=== PATIENT | female | born 1955 | race American Indian/Alaskan Native ===

== ENCOUNTER 2019-11-05 10:26 | Inpatient (IN) | payer BC, OTHER ==
[~2019-11-05] VITALS: Ht 160 cm; Wt 120.7 kg
[~2019-11-05 10:26] MED LIST: GABAPENTIN300 MG PO
--- NOTE | 2019-11-06 17:03 | NUR ---
PATIENT HERE FOR PREADMIT APPOITMENT. SHE IS SCHEDULED ON 11/19/2019 FOR A RIGHT TOTAL HIP ARTHROPLASTY. SHE WAS TIGHT ON TIME DURING THIS PREADMIT AND NEEDED TO GET TO A FAMILY GATHERING. SHE STATES SHE HAS ONE STEP INTO THE HOME AND NO STEPS INSIDE THE HOME. THERE IS A WALK IN SHOWER. SHE HAS A FRONT WHEELED WALKER AND WILL GO TO [facility] TO OBTAIN A SHOWER BENCH AND SOMETHING FOR THE TOILET TO ELEVATE HER ABOVE THE LEVEL OF THE KNEE. SHE WOULD LIKE PHYSICAL THERAPY AT [facility] PHYSICAL THERAPY AFTER SURGERY. SHE HAS NOT HAD A PREOP PHYSICAL THERAPY APPOINTMENT. HER ABBIE WILL BE HERE TO TRANSPORT HER HOME WHEN DISCHARGED. PATIENT STATES ALL HER LABS/EKG/CXR HAS BEEN DONE AT [facility]. THIS RN WILL CONTACT [facility] FOR THE TEST THAT HAVE BEEN COMPLETED AND AN H&P. THIS INFORMATION WILL BE SENT TO DR DARBY OFFICE AND CASE MANAGEMENT FOR FUTHER FOLLOW UP.
[2019-11-18] MEDS ORDERED: OXYBUTYNIN CHLO10 MG PO (14:26)
[2019-11-18] MEDS ORDERED: CYMBALTA60 MG PO (14:26)
[2019-11-18] MEDS ORDERED: CELEBREX200 MG PO (14:27)
[2019-11-18] MEDS ORDERED: TOPAMAX25 MG PO (14:27)
[2019-11-18] MEDS ORDERED: LYRICA75 MG PO (14:28)
[2019-11-18] MEDS ORDERED: FOLIC ACID1 MG PO (14:28)
--- NOTE | 2019-11-19 06:34 | NUR ---
CHG NASAL SWAB AND ORAL RINSE COMPLETE.
--- NOTE | 2019-11-19 08:05 | NUR ---
PT IS ALERT, ORIENTED AND SUPPORTED BY HER ULISES. PT SEEMS INFORMED, FAIRLY COMFORTABLE AND ABLE TO LAUGH AND JOKE. PT REQUESTED PRAYER AND WE FINISHED KIM CORDOVA CAME TO GET PT READY. WILL FOLLOW NEEDED
--- NOTE | 2019-11-19 09:48 | NUR ---
11/19/19 0948 Linda Mccoy 0938 PT ARRIVED IN PACU WIDE AWAKE WITH NO C/O'S. 0948 RESTING. REU.
--- NOTE | 2019-11-19 10:30 | NUR ---
PT RETURNED TO ROOM FOLOWING R HIP REPLACEMENT, WAKENS EASILY TO HER NAME, ORIENTED, DENIES ANY PAIN, CMS INTACT TO R FOOT/TOES, ABDUCTOR WEDGE IN PLACE, ICE TO INCISION R HIP, DRSG IS CDI. ORIENTED TO CALL LIGHT, ORDERS NOTED AND FAXED TO PHARMACY. CONT. PULSE OXIMETER IN PLACE, IVF PATENT, DENIES NEED TO VOID.
--- NOTE | 2019-11-19 11:43 | NUR ---
AWAKE SITTING UP IN BED, ORDERED BREAKFAST, IN ROOM, USING INCENTIVE SPIROMETER. CALL LIGHT IN EASY REACH, AGAIN DENIES NEED TO VOID. DRSG REMAINS CDI, ICE TO HIP.
--- NOTE | 2019-11-19 13:10 | NUR ---
PT IS ALERT, CONT. TO DENY ANY DISCOMFORT, GOOD CMS TO R FOOT, DRSG REMAINS CDI WITH ICE TO INCISION. SITTING UP EATING LUNCH, NO NAUSEA, VISITING WITH FATHER ALVARO.
--- NOTE | 2019-11-19 15:16 | NUR ---
2 PERSON ASSIST TO STAND AND PIVOT ONTO BSC, VOIDED 200ML YELLOW URINE, PT CONT. TO DENY ANY PAIN, HAS GOOD CMS TO FEET, ABLE TO BEAR FULL WT USING FWW, IVF PATENT, DENIES ANY NAUSEA, BACK TO BED WITH ICE TO INCISION, DRSG WITH SCANT AMOUNT DRAINAGE NOTED. WEDGE IN PLACE WITH HEEL PROTECTORA AND SCD'D. CALL LIGHT IN EASY REACH.
--- NOTE | 2019-11-19 15:46 | NUR ---
PT IS AMBULATING IN HALLWAY WITH PHYSICAL THERAPY AT THIS TIME.
--- NOTE | 2019-11-19 17:20 | NUR ---
PT IS IN BED, WITH ICE TO INCISION, DINNER JUST ARRIVED, PT STATES SHE IS HUNGRY, CONT. TO DENY ANY PAIN, REPORTS INCREASED FEELING IN HIP WITH AMBULATION WHEN WORKING WITH PT, PT IN GOOD SPIRITS, DENIES ANY NEEDS, SCHEDULED TORADOL GIVEN. CALL LIGHT IN EASY REACH.
--- NOTE | 2019-11-19 19:15 | NUR ---
REPORT RECEIVED FROM DAY SHIFT RN. PT LYING IN BED, ALERT AND ORIENTED HAVING A SNACK. SCD'S/BOLSTER/HP IN PLACE. ICE TO RIGHT HIP INCISION. DRESSING INTACT WITH SMALL AMOUNT OF DRAINAGE. DENIES NEEDS AT THIS TIME. WHITE BOARD UPDATED. CALL LIGHT IN REACH.
--- NOTE | 2019-11-19 20:37 | NUR ---
ROUNDED CHARGE. PATIENT IS RESTING IN BED. JULI RN IS IN ROOM. PATIENT IS FEELING NAUSOUS. JULI RN PROVIDED WITH ZOFRAN PER ORDER FOR PATIENT. NO FURTHER NEEDS NOTED. CALL LIGHT IN REACH.
--- NOTE | 2019-11-19 20:40 | NUR ---
PT MEDICATED WITH PRN FOR NAUSEA. SCHEDULED PO MEDS HELD AT THIS TIME. COOL WASHCLOTH PROVIDED.
--- NOTE | 2019-11-19 21:20 | NUR ---
EVENING ASSESSMENT COMPLETE. PT DENIES NAUSEA, PO MEDS GIVEN WITHOUT ISSUE. PT UP TO BSC WITH 2PA AND FWW. GAIT STEADY. BACK TO BED, YAMILE WELL. SCD'S/TEDS/HP/BOLSTER IN PLACE. DRESSING ON RIGHT HIP CDI WITH SCANT AMOUNT OF SANGUINEOUS DRAINAGE. FRESH ICE TO INCISION. CPOX IN PLACE. PT DENIES PAIN AT THIS TIME. CALL LIGHT IN REACH.
--- NOTE | 2019-11-19 23:10 | NUR ---
PT RESTING COMFORTABLY. CPOX IN PLACE. IV ABX INFUSING.
--- NOTE | 2019-11-20 01:49 | NUR ---
PT RESTING IN BED WITH EYES CLOSED, NAD. CPOX IN PLACE. SpO2 95% ON RA, HEART RATE 60.
--- NOTE | 2019-11-20 03:18 | NUR ---
PT RESTING WELL. SCHEDULED MEDS GIVEN. DENIES PAIN OR NAUSEA. FRESH ICE TO INCISION.
--- NOTE | 2019-11-20 08:06 | NUR ---
BEDSIDE REPORT RECEIVED FROM JULI ESCOBEDO. WHITE BOARD UPDATED. PATIENT DROWSY BUT AWAKE LYING IN BED. VS TAKEN BY STUDENT NURSE. NO NEEDS AT THIS TIME.
--- NOTE | 2019-11-20 08:25 | NUR ---
CALL LIGHT ANSWERED. PATIENT RESTING IN BED. IN ROOM. PATIENT GOES TO USE THE BASE COMMODE. PATIENT USES WALKER. ONE PERSON ASSISTING. PATIENT BACKS TO BED. CALL LIGHT WITHIN REACH. NO OTHER NEEDS AT THIS TIME
--- NOTE | 2019-11-20 09:07 | OR ---
[facility] [address], [place] [address] Signed DATE OF OPERATION: 11/19/2019 SURGEON: Aden Gutierrez MD PREOPERATIVE DIAGNOSIS: End-stage osteoarthritis, right hip. POSTOPERATIVE DIAGNOSIS: End-stage osteoarthritis, right hip. PROCEDURE: Right total hip arthroplasty. ANESTHESIA: spinal with sedation. IMPLANTS: High offset size 7 [place] stem and a 54 mm sector hole pinnacle cup with a neutral 36 liner. SPECIMENS AND COMPLICATIONS: There were no specimens or complications. BLOOD LOSS: Probably about 600 mL. WHAT WAS DONE: The patient was taken to the operating room. After anesthesia was induced and the airway secured, the patient was placed in the left lateral decubitus position and prepped and draped in a routine sterile fashion. The bony topography was outlined with a skin marking pen. A slightly curvilinear and anterolateral incision was made centered over the tip of the greater trochanter. Skin was divided sharply. Subcutaneous tissue was bluntly spread and hemostasis was achieved with electrocautery. Deep fascia was incised in line with the skin incision and then a self-retaining retractor was placed. We then released the anterior third of the gluteus off the greater trochanter and retracted it medially. We then did an anterior and superior capsulectomy. We were then able to dislocate the hip. The femoral neck resection was accomplished at the base of the greater trochanter using the alignment guide. We then removed the head and neck fragment. The wound was gently irrigated and a self retaining retractor was placed. We then exposed the acetabulum circumferentially and proceeded with standard hemispherical Electronically Signed By: ADEN GUTIERREZ MD 11/20/19 0907 PATIENT NAME: ARTURO DOSHI OPERATIVE REPORT DATE OF : 55 REPORT #: [id number] PHYSICIAN: ADEN GUTIERREZ MD PCP: JOSUE WAGONER REPORT IS CONFIDENTIAL AND NOT TO BE RELEASED WITHOUT AUTHORIZATION [facility] [address], [place] [address] Signed reaming. We had this snugly fit with a 53 mm reamer. We impacted a 53 mm trial. The trial seemed to sit quite nicely with good alignment and position. So, we impacted a 54 mm cup and secured it with two additional screws. A neutral liner was then impacted. The wound was gently irrigated and the proximal femur was rotated up into the wound. We then prepared the proximal femur for standard reamers and broaches and had quite snug fit with a size 7 broach. We then reduced the hip and we were happiest with the +1.5 high offset combination. We then removed all the trials after taking an x-ray that showed good alignment and good position. We then impacted the size 7 high offset stem and put a +5 head on, which seemed to give us a little bit better length and a little bit better stability. At this point, there was an excellent range of motion of the hip. The calcar looked unremarkable. The wound was gently irrigated and closed in a standard fashion. Sterile dressings were applied and the patient was awakened and taken to the recovery room where she arrived in stable condition. Counts were correct and antibiotic protocols were followed. Aden Gutierrez MD WFB/MODL /[id number] Copies: ~ Electronically Signed By: ADEN GUTIERREZ MD 11/20/19 0907 PATIENT NAME: TICOARTURO OPERATIVE REPORT DATE OF : 55 REPORT #: [id number] PHYSICIAN: ADEN GUTIERREZ MD PCP: JOSUE WAGONER REPORT IS CONFIDENTIAL AND NOT TO BE RELEASED WITHOUT AUTHORIZATION
--- NOTE | 2019-11-20 10:31 | NUR ---
AMBULATING IN HALLWAY WITH DEQUAN PHYSICAL THERAPIST.
[2019-11-20] MEDS ORDERED: VITAMIN D3125 MC1 PO (12:15)
[2019-11-20] MEDS ORDERED: POTASSIUM CITR10 MEQ PO (12:18)
[2019-11-20] MEDS ORDERED: APPLE CIDER VI500 MG PO (12:19)
[2019-11-20] MEDS ORDERED: TURMERIC500 M2 PO (12:21)
[2019-11-20] MEDS ORDERED: METAMUCIL0.4 GM PO (12:23)
[2019-11-20] MEDS ORDERED: MAGNESIUM400 MG PO (12:28)
--- NOTE | 2019-11-20 13:13 | NUR ---
Medications reconciled using pharmacy records and patient interview
--- NOTE | 2019-11-20 13:18 | NUR ---
PT ALERT, ORIENTED AND HAS PAIN AT 3-4. SHE ANTICIPATES DC LATER TODAY AFTER PM P.T.HAD GOOD VISIT WITH PT, EXPRESSES SATISFACTION WITH CARE. PT REQUESTED PRAYER, WILL FOLLOW NEEDED
--- NOTE | 2019-11-20 13:56 | NUR ---
PATIENT SITTING UP IN BED. PHYSICAL THERAPIST AND STUDENT RN IN ROOM. THE FOLLOWING VITAL SIGNS DONE BY STUDENT RN. I&O DONE. CALL LIGHT WITHIN REACH. NO OTHER NEEDS AT THIS TIME
--- NOTE | 2019-11-20 14:22 | NUR ---
JUST FINISHED WORKING WITH DEQUAN, PHYSICAL THERAPIST. DR GUTIERREZ IN TO SEE PATIENT NOW. WILL DISCHARGE THIS EVENING.
[2019-11-20] MEDS ORDERED: DILAUDID4 MG PO (14:39)
[2019-11-20] MEDS ORDERED: OXYCODONE HCL10 MG PO (14:41)
[2019-11-20] MEDS ORDERED: TYLENOL325 MG PO (14:45)
[2019-11-20] MEDS ORDERED: ZOFRAN4 MG PO (14:46)
[2019-11-20] MEDS ORDERED: ASPIRIN325 MG PO (14:48)
== END 2019-11-20 16:30 | disposition home or self-care (01) | DRG 470 ==
LOC: DSVR 11-19 05:45 → MS 11-19 05:45
PROVIDERS: ADMIT Orthopaedic Surgery
PROC: 0SR90JZ Replacement of Right Hip Joint with Synthetic Substitute, Open Approach (ICD-10-PCS; principal; 2019-11-19 06:45)
DX: M16.11 Unilateral primary osteoarthritis, right hip (principal); Z68.42 Body mass index [BMI] 45.0-49.9, adult; M79.7 Fibromyalgia; M48.062 Spinal stenosis, lumbar region with neurogenic claudication; M51.16 Intervertebral disc disorders with radiculopathy, lumbar region; M54.32 Sciatica, left side; M54.31 Sciatica, right side; E66.9 Obesity, unspecified; G47.30 Sleep apnea, unspecified; Z79.899 Other long term (current) drug therapy; Z79.1 Long term (current) use of non-steroidal anti-inflammatories (NSAID)
CPT/HCPCS: 01214; 36415; 72170; 73501; 80053; 85025; 94762; 97110; 97116; 97162; C1776; J0690; J1885; J2001; J2250; J2274; J2405; J2704; J7121

== ENCOUNTER 2019-12-17 09:02 | Day surgery (SDC) | payer BC, OTHER ==
[~2019-12-17] VITALS: Ht 160 cm; Wt 120.7 kg
--- NOTE | ~2019-12-17 | OR ---
[facility] [address], [place] [address] Draft DATE OF OPERATION: 12/17/2019 SURGEON: Aden Gutierrez MD PREOPERATIVE DIAGNOSIS: Postoperative hematoma, right total hip wound. POSTOPERATIVE DIAGNOSIS: Postoperative hematoma, right total hip wound. PROCEDURE PERFORMED: Incision and drainage. ANESTHESIA: General. We did send some cultures and there was no purulence and nothing to suggest any infection. WHAT WAS DONE: The patient was taken to the operating room. After anesthesia was induced, she was placed in the left lateral decubitus position and prepped and draped in a routine sterile fashion. We opened the central third of her incision and evacuated probably about 400 mL of liquid hematoma. There was also some clotted material. This was then copiously irrigated with 6 L of jet lavage followed by a liter of Betadine solution followed by . At this point, we appeared to have a completely clean wound. There was nothing to suggest violation of the deep fascia. We did excise some of the necrotic fat and sent it off for cultures. We then freshened up the edges of the incision and closed it approximating and closing the space with interrupted vertical mattress nylon sutures and then we secured the skin with kaya. Two medium Hemovacs were left in the depth of the wound. We then attached the Hemovac to drainage and really nothing additional came out. A sterile dressing was applied. The patient was awakened and taken to the recovery room where she arrived in stable condition. Counts were correct and antibiotic protocols were followed. Aden Gutierrez MD PATIENT NAME: ARTURO DOSHI OPERATIVE REPORT DATE OF : 55 REPORT #: [id number] PHYSICIAN: ADEN GUTIERREZ MD PCP: JOSUE WAGONER REPORT IS CONFIDENTIAL AND NOT TO BE RELEASED WITHOUT AUTHORIZATION [facility] [address], [place] [address] Draft [facility] /[id number] Copies: ~ PATIENT NAME: ARTURO DOSHI OPERATIVE REPORT DATE OF : 55 REPORT #: [id number] PHYSICIAN: ADEN GUTIERREZ MD PCP: JOSUE WAGONER REPORT IS CONFIDENTIAL AND NOT TO BE RELEASED WITHOUT AUTHORIZATION
[~2019-12-17 09:02] MED LIST changes: +APPLE CIDER VI500 MG PO; +ASPIRIN325 MG PO; +CELEBREX200 MG PO; +CYMBALTA60 MG PO; +DILAUDID4 MG PO; +FOLIC ACID1 MG PO; +LYRICA75 MG PO; +MAGNESIUM400 MG PO; +METAMUCIL0.4 GM PO; +OXYBUTYNIN CHLO10 MG PO; +OXYCODONE HCL10 MG PO; +POTASSIUM CITR10 MEQ PO; +TOPAMAX25 MG PO; +TURMERIC500 M2 PO; +TYLENOL325 MG PO; +VITAMIN D3125 MC1 PO; +ZOFRAN4 MG PO
--- NOTE | 2019-12-17 10:10 | NUR ---
PT'S BP LOW. RECHECKED ON OTHER ARM AND WITH RADIAL CUFF. BP STILL LOW ACCORDING TO PT'S REPORT OF NORMAL BPS. CHARGE NURSE NOTIFIED. FLUIDS SARTED VIA IV IN RIGHT WRIST
--- NOTE | 2019-12-17 12:07 | NUR ---
12/17/19 1206 Sheets,Zuly 1159 PT ARRIVED TO PACU RESP EVEN AND UNLABORED. 10L VIA MASK IN PLACE. PT ASLEEP.
--- NOTE | 2019-12-17 12:52 | NUR ---
GEOVANNA 1225- PT RETURNS TO ROOM 3 FROM PACU. VSS. PT REPORTS 2/10 PAIN IN RIGHT HIP. HEMOVAC DRAIN IN PLACE. SMALL AMOUNT OF DRAINAGE ON DRESSING. ORDER FOR LUNCH PLACED FOR PT. WATER PROVIDED. CALL LIGHT WITHIN REACH
[2019-12-17] MEDS ORDERED: NORCO 10-325 T1 EACH PO (13:11)
[2019-12-17] MEDS ORDERED: BACTRIM DS TAB1 EACH PO (13:11)
== END 2019-12-17 14:00 | disposition home or self-care (01) ==
LOC: DS 09:02 → OPS 09:02 → DS 09:15 → OPS 10:15 → DS 17:38
PROVIDERS: Orthopaedic Surgery
PROC: 0H9HX0Z Drainage of Right Upper Leg Skin with Drainage Device, External Approach (ICD-10-PCS; principal; 2019-12-17 10:15)
DX: L76.32 Postprocedural hematoma of skin and subcutaneous tissue following other procedure (principal); L76.31 Postprocedural hematoma of skin and subcutaneous tissue following a dermatologic procedure; M54.16 Radiculopathy, lumbar region; G62.9 Polyneuropathy, unspecified; E66.01 Morbid (severe) obesity due to excess calories; G89.29 Other chronic pain; G47.33 Obstructive sleep apnea (adult) (pediatric); R32 Unspecified urinary incontinence; Z79.899 Other long term (current) drug therapy; Z68.42 Body mass index [BMI] 45.0-49.9, adult; Z79.82 Long term (current) use of aspirin; Y83.8 Other surgical procedures as the cause of abnormal reaction of the patient, or of later complication, without mention of misadventure at the time of the procedure
CPT/HCPCS: J0690; J1100; J1885; J2001; J2250; J2405; J2704; J2765; J3010; J7121

== ENCOUNTER 2020-01-04 13:45 | Emergency (ER) | payer BC, OTHER ==
[~2020-01-04] VITALS: Ht 160 cm; Wt 120.7 kg
[~2020-01-04 13:45] MED LIST changes: +BACTRIM DS TAB1 EACH PO; +FUROSEMIDE20 MG PO; +NORCO 10-325 T1 EACH PO
--- OUTSIDE RECORDS SUMMARY | 2020-01-04 13:48 | XMS ---
PreManage Notification: ARTURO DOSHI Security Guide Foreign Tour Events No recent Security Events currently on file [facility] There are no care providers on record at this time. Ashley has no Care Guidelines for this patient. Vandana VISIT COUNT (12 MO.) 1 [facility] TOTAL 1 NOTE: Visits indicate total known visits. ED/UCC VISIT TRACKING (12 MO.) 01/04/2020 13:46 [facility] TYPE: Emergency COMPLAINT: - POST OP PROBLEM INPATIENT VISIT TRACKING (12 MO.) 11/19/2019 05:[address] [facility] [place] TYPE: Medical Surgical COMPLAINT: - RIGHT TOTAL HIP ARTHROPLASTY DIAGNOSES: - Sciatica, left side - Unilateral primary osteoarthritis, right hip - Bilateral primary osteoarthritis of hip - Fibromyalgia - prison (current) use of non-steroidal anti-inflammatories - Fibromyalgia - Body mass index (BMI) 45.0-49.9, adult - Sciatica, right side - Spinal stenosis, lumbar region with neurogenic claudication - Other mcfp (current) drug therapy - Obesity, unspecified - Intervertebral disc disorders with radiculopathy, lumbar evelia - Sleep apnea, unspecified - Other mcfp (current) drug therapy - 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
== END 2020-01-04 14:25 | disposition home or self-care (01) ==
LOC: ED 13:45
DX: Z48.01 Encounter for change or removal of surgical wound dressing (principal)

== ENCOUNTER 2020-01-08 19:31 | Emergency (ER) | payer BC, OTHER ==
[~2020-01-08] VITALS: Ht 160 cm; Wt 118.8 kg
--- OUTSIDE RECORDS SUMMARY | 2020-01-08 19:34 | XMS ---
PreManage Notification: ARTURO DOSHI Security [place] [employer] Events No recent Security Events currently on file CRITERIA MET - [facility] - [facility] - 2 Visits in 30 Days CARE PROVIDERS There are no care providers on record at this time. Ashley has no Care Guidelines for this patient. [facility] MO.) [facility] NOTE: Visits indicate total known visits. ED/C VISIT TRACKING (12 MO.) 01/08/2020 19:[address] 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
[2020-01-08] MEDS ORDERED: LEVAQUIN500 MG PO (20:09)
== END 2020-01-08 21:34 | disposition home or self-care (01) ==
LOC: ED 19:31
DX: Z47.1 Aftercare following joint replacement surgery (principal); Z79.899 Other long term (current) drug therapy; Z96.641 Presence of right artificial hip joint
CPT/HCPCS: 99283

== ENCOUNTER 2020-01-13 16:03 | Emergency (ER) | payer BC, OTHER ==
[~2020-01-13] VITALS: Ht 160 cm; Wt 118.8 kg
[~2020-01-13 16:03] MED LIST changes: +LEVAQUIN500 MG PO
--- OUTSIDE RECORDS SUMMARY | 2020-01-13 16:06 | XMS ---
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 Ashley has no Care Guidelines for this patient. [facility]ana V[facility] (12 MO.) [facility] NOTE: Visits indicate total known visits. ED/C VISIT TRACKING (12 MO.) 01/13/2020 16:[address] 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 - Presence of right artificial hip joint 01/04/2020 13:46 [facility] TYPE: Emergency [...] primary osteoarthritis of hip - Fibromyalgia - senior living (current) use of non-steroidal anti-inflammatories - Fibromyalgia - Body mass index (BMI) 45.0-49.9, adult - Sciatica, right side - Spinal stenosis, lumbar region with neurogenic claudication - Other penitentiary (current) drug therapy - Obesity, unspecified - Intervertebral disc disorders with radiculopathy, lumbar evelia - Sleep apnea, unspecified - 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
[2020-01-13] MEDS ORDERED: XARELTO15 MG PO (16:50)
== END 2020-01-13 18:12 | disposition home or self-care (01) ==
LOC: ED 16:03
DX: I82.401 Acute embolism and thrombosis of unspecified deep veins of right lower extremity (principal)
CPT/HCPCS: 80053; 85025; 99283